=== PATIENT | male | born 1940 | race Caucasian/White ===

== ENCOUNTER 2016-02-21 12:11 | Emergency (ER) | payer MEDICARE, OTHER ==
[2016-02-21 12:45] LABS: Hematocrit 42.4 % (42.0-52.0); Hemoglobin 14.4 gm/dL (13.5-18.0); Mean Cell Volume 88.5 fl (78-100); Mean Corpuscular Hemoglobin 30.1 pg (27-31); Mean Platelet Volume 10.4 fl (6.0-9.5); Neutrophil % 65.5 % (42-75.0); Platelet Count 189 K/mm3 (150-450); Red Blood Count 4.79 M/mm3 (4.7-6.0); Red Cell Distribution Width 12.5 % (11.5-14.0); White Blood Count 9.2 K/mm3 (4.0-10.5)
[2016-02-21 13:00] LABS: INR 1.06 INR (0.90-1.10); Partial Thrombolplastin Time 26.2 Seconds (24-32)
[2016-02-21 13:05] LABS: ALT 29 U/L (19-67); AST 13 U/L (0-48); Albumin * 3.9 gm/dl (3.4-5.0); Alkaline Phosphatase * 79 U/L (50-170); Anion Gap 12.2 mmol/L (6.8-13.8); BUN/Creatinine Ratio 18.9 (9.0-21.6); Bilirubin, Total 0.4 mg/dL (0.0-1.1); Blood Urea Nitrogen 21 mg/dL (6-23); Ca. Corrected For Albumin 9.2 mg/dL (8.4-10.2); Calcium * 9.4 mg/dL (7.9-10.9); Carbon Dioxide 30.9 mmol/L (24-32.6); Chloride 102 mmol/L (97-106); Glucose * 131 mg/dL (70-110); Potassium 4.1 mmol/L (3.4-4.6); Sodium 141 mmol/L (132-142); Total Protein 7.5 gm/dL (6.2-8.2)
[2016-02-21 13:06] LABS: Troponin I Less than 0.017 ng/ml (0.00-0.10)
[2016-02-21] MEDS ORDERED: NITROGLYCERIN 1 INCH PACKET TD ONE ×2 (14:16→14:34)
--- NOTE | 2016-02-21 14:16 | ERNOTE ---
Chest Pain/Cardiac HPI Date of Service: 02/21/16 Chief Complaint: Chest Pain Time Seen by Provider: 02/21/16 12:20 Source: patient Exam Limitations: no limitations Immunizations: IMMUNIZATION HX Immunizations Up to Date Yes History of Influenza Vaccine Yes Hx Pneumococcal Vaccination Yes Allergies/Adverse Reactions: Allergies No Known Allergies Allergy (Unverified 02/21/16 12:24) Home Medications: HOME MEDICATIONS Aspirin [Aspirin Chewable] 81 mg PO DAILY 02/21/16 [Last Taken Unknown] Atorvastatin Calcium 20 mg PO DAILY 02/21/16 [Last Taken Unknown] Tamsulosin HCl [Flomax] 0.4 mg PO DAILY 02/21/16 [Last Taken Unknown] Valsartan 80 mg PO DAILY 02/21/16 [Last Taken Unknown] Timing: intermittent Severity/Quality: moderate Location: central, left chest Chest Pain Radiation: no radiation Activities at Onset: activity Modifying Factors - Improves: Present: rest Modifying Factors - Worsens: Present: movement Nitro Today/Relief: no nitro taken today Aspirin Treatment Today: 81 mg x 1 Associated Symptoms: Present: dizziness. Absent: syncope, cough, shortness of breath, diaphoresis, fever/chills, palpitations, nausea, vomiting, abdominal pain, weakness Review of Systems - Review of Systems Constitutional: Present: no symptoms reported EYE: Present: no symptoms reported ENT: Present: no symptoms reported Respiratory: Absent: cough, orthopnea, wheezing Cardiology: Present: chest pain. Absent: palpitations, syncope, edema, claudication Gastrointestinal/Abdominal: Present: no symptoms reported Genitourinary: Present: no symptoms reported Musculoskeletal: Present: no symptoms reported Skin: Present: no symptoms reported Neurological: Present: no symptoms reported Endocrine: Present: no symptoms reported Hematologic/Lymphatic: Present: no symptoms reported Psych: Present: no symptoms reported - Patient's Past Medical History Patient History - Medical: No pertinent hx Patient History - Cardiac/Respiratory: Hypertension, Other - High Cholesterol Patient History - Cancer: No Hx of Cancer Patient History - Surgical Procedures: Appendectomy, Cataracts, Other - Social History Smoking Status: Current every day smoker Have you smoked in the past 12 months: Yes Do you dip or chew tobacco: No Alcohol Use: heavy Drug Use: none Physical Exam - Physical Exam General Appearance: Present: wd/wn, alert, no apparent distress Eye Exam: Normal inspection: bilateral, PERRL: bilateral, EOMI: bilateral, Other : right Ears, Nose, Throat: Present: normal ENT inspection, hearing grossly normal, normal pharynx Neck: Present: normal inspection, nontender Respiratory: Present: no respiratory distress, normal breath sounds, no accessory muscle use, chest nontender, lungs clear Cardiovascular/Chest: Present: regular rate, rhythm, no murmur, normal peripheral pulses Peripheral Pulses: N=norm/S=strong/W=weak/B=bound/A=absent: Carotid (R): Normal , Carotid (L): Normal, Radial (R): Normal, Radial (L): Normal, Dorsalis-pedis (R ): Normal, Dorsalis-pedis (L): Normal Gastrointestinal/Abdominal: Present: normal bowel sounds, nontender, nondistended, soft, no organomegaly Back Exam: Present: normal inspection, normal range of motion, no CVA tenderness , no vertebral tenderness Extremity Exam: Present: normal inspection, non-tender, no edema, normal range of motion Neurological Exam: Present: alert, oriented, normal mood/affect, no motor/ sensory deficits Skin Exam: Present: normal color, warm/dry Lymphatic Exam: Present: no adenopathy ED Progress - Date and Time Seen: Date and Time: 02/21/16 14:13 Patient still with on and off chest pain. Patient at the moment with a DEB Score: 2 and is an active smoker. Page to Dr. Caban will be place for admission. 02/21/16 14:49 Patient at this point has voiced his desire to go home. RN explained to patient the risk of leaving. After this intervention repeat risks and benefits to patient. I clearly explained to patient the risk of , loss of heart function, and life style. Patient was welcome to return if he changed his mind. Patient agreed. Patient at the moment is with no suicidal, homicidal, or active hallucinations. AMA Form has been completed. - Results and Orders Patient's Lab Results:: I have reviewed the patient's lab results. - Vital Signs Patient's Vital Signs:: I have reviewed the patient's vital signs. Vital Signs: Vital Signs 02/21/16 02/21/16 12:15 13:10 Temperature 36.2 C L Pulse Rate 77 66 Respiratory 16 16 Rate Blood Pressure 179/82 140/67 O2 Sat by Pulse 96 93 Oximetry - EKG EKG: NSR, no ST T wave changes EKG Comments: HR: 80, [place]: Normal. Sinus Arrhythmia, No ST Elevation - Progress/Reassessment Chief Complaint: Chest Pain Plan - Plan Plan: Patient will be place in observation for further evaluation and treatment Departure - Departure Clinical Impression: Chest pain Qualifiers: Chest pain type: unspecified Qualified Code(s): R07.9 - Chest pain, unspecified Disposition: Against medical advice Condition: Stable Instructions: Nonspecific Chest Pain, [id number]
[2016-02-21 15:00] VITALS: BP 137/68
== END 2016-02-21 14:59 | disposition left against medical advice (07) ==
LOC: ER 12:11
DX: R07.89 Other chest pain (principal); F17.210 Nicotine dependence, cigarettes, uncomplicated